=== PATIENT | male | born 1985 | race Caucasian/White ===

== ENCOUNTER → 2020-11-25 | Outpatient (CLI) | payer MEDICAID | LOC: M LAB 10:11 | PROVIDERS: ATTEND Dermatology | DX: L40.9 Psoriasis, unspecified (principal) ==

== ENCOUNTER → 2021-10-30 | Outpatient (CLI) | payer OTHER | LOC: M LAB 13:34 | PROVIDERS: ATTEND Nurse Practitioner Family | DX: L40.9 Psoriasis, unspecified (principal) ==

== ENCOUNTER → 2022-12-03 | Outpatient (CLI) | payer OTHER | LOC: M LAB 13:59 | PROVIDERS: ATTEND Nurse Practitioner Family | DX: L40.9 Psoriasis, unspecified (principal) ==

== ENCOUNTER → 2024-04-03 | Outpatient (CLI) | payer OTHER ==
[2024-04-05 11:11] LABS: QuantiFERON-TB Gold Plus NEGATIVE (NEGATIVE)
== END ==
LOC: M LAB 13:24
PROVIDERS: ATTEND Nurse Practitioner Family
DX: L40.9 Psoriasis, unspecified (principal)

== ENCOUNTER → 2025-06-24 | Outpatient (REF) | payer MEDICAID, OTHER | LOC: M SFHCADAM 10:00 | PROVIDERS: ATTEND Nurse Practitioner Family | DX: L40.9 Psoriasis, unspecified (principal) ==